=== PATIENT | female | born 1970 | race Caucasian/White ===

== ENCOUNTER → 2016-10-01 | Outpatient (CLI) | payer BC ==
--- NOTE | 2016-10-01 17:39 | Diagnostic Imaging Report ---
INDICATION: Cough. FINDINGS: There is some flattening of the diaphragms and expansion of the retrosternal airspace consistent with mild air trapping. This is a symmetric finding. No gross thickening of the central airways. No appreciable bronchiectasis. No alveolar consolidation. No effusion, pneumothorax, or failure pattern. IMPRESSION: Clear mildly hyperexpanded lungs, otherwise negative. Dictated by: Dictated on workstation # [id number]
== END ==
LOC: RAD 13:40
PROVIDERS: ATTEND Internal Medicine
DX: R05 Cough (principal)
CPT/HCPCS: 71020

== ENCOUNTER → 2019-08-12 | Outpatient (CLI) | payer BC ==
--- NOTE | 2019-08-12 15:49 | Diagnostic Imaging Report ---
MRI LT UPPER EXT JOINT W/O TECHNIQUE: Multiplanar, multisequence MR imaging of the left shoulder was performed without contrast. COMPARISON: None available. INDICATION: Left shoulder pain. No known injury. FINDINGS: Rotator cuff: No high-grade partial or full-thickness rotator cuff tear. Low-grade partial-thickness bursal sided tearing of the conjoint insertional fibers of supraspinatus and infraspinatus involves less than 25% of the tendon thickness. The subscapularis and teres minor are normal. No rotator cuff muscle atrophy. Glenoid labrum: By non-arthrogram imaging, the glenoid labrum appears intact. No para-labral cyst. Long head of biceps: Long head of biceps is normally positioned within the bicipital groove. The intracapsular segment is intact. Bones and cartilage: Humeral head is normal in morphology without fracture or focal osseous lesion. No glenohumeral chondromalacia. The acromioclavicular joint is normal in alignment without significant degenerative change. Soft tissues: No glenohumeral joint effusion. No MRI findings to suggest adhesive capsulitis. No fluid or inflammatory like signal within the subacromial/subdeltoid space to indicate bursitis. There is a small amount of fluid in the subcoracoid recess which is likely physiologic. IMPRESSION: 1. Low-grade partial-thickness bursal sided tear of the conjoint insertional fibers of the supraspinatus and infraspinatus. No full-thickness rotator cuff tear or muscle atrophy. 2. Long head of biceps is normal. Dictated by: Dictated on workstation # [id number]
== END ==
LOC: RAD 14:26
PROVIDERS: ATTEND Orthopaedic Surgery
DX: S46.012A Strain of muscle(s) and tendon(s) of the rotator cuff of left shoulder, initial encounter (principal)
CPT/HCPCS: 73221